=== PATIENT | female | born 1980 | race Caucasian/White ===

== ENCOUNTER 2018-03-26 13:30 | Inpatient (IN) | payer OTHER ==
[2018-03-26] MEDS ORDERED: ePHEDrine 50 MG/ML SDV IVPUSH PRN (14:14)
[2018-03-26] MEDS ORDERED: fentaNYL 100 MCG/2 ML SDV EPIDUR PRN (14:14)
[2018-03-26] MEDS ORDERED: Ondansetron 4 MG/2 ML SDV IVPUSH PRN (14:14)
[2018-03-26] MEDS ORDERED: Bupivacaine/fentaNYL/NS 100 ML Bag EPIDUR SCH (14:15)
[2018-03-26] MEDS ORDERED: Nalbuphine 20 MG/ML 1 ML Syringe IVPUSH PRN (14:52)
[2018-03-26] MEDS ORDERED: Sodium Chloride 0.9% 10 ML Syringe FLUSH PRN (14:52)
[2018-03-26] MEDS ORDERED: Lidocaine 1% 50 ML MDV INJECT ONE (14:52)
[2018-03-26] MEDS ORDERED: Oxytocin/Lactated Ringers 10 UNIT/1,000 ML BAG IV SCH (15:00)
[2018-03-26] MEDS ORDERED: Lactated Ringers 1,000 ML IV SCH (15:00)
--- NOTE | 2018-03-26 15:36 | PCM.PREANE ---
Preanesthetic Assessment - Anesthesia/Transfusion/Family Hx Anesthesia History: Prior Anesthesia Without Reaction Family History of Anesthesia Reaction: No Transfusion History: No Prior Transfusion(s) Intubation History: Unknown - Review of Systems General: No Symptoms Cardiovascular: Palpitations ( PVC's noted with with normal echocardiogram and cardiology consult with no findings noted.), Lightheadedness (with with positional changes) Gastrointestinal: No Symptoms (GERD), Constipation, Nausea Neurological: No Symptoms (History of motin sickness) Other: Reports: Anxiety - Physical Assessment NPO Status Date: 03/26/18 NPO Status Time: 15:30 Pulse: 69 O2 Sat by Pulse Oximetry: 100 Respiratory Rate: 18 Blood Pressure: 118/71 Temperature: 37.1 C Vital Signs: Last Vital Signs Temp 37.1 C 03/26/18 14:52 Pulse 69 03/26/18 14:52 Resp 18 03/26/18 14:52 BP 118/71 03/26/18 14:52 Pulse Ox 100 03/26/18 14:52 Height: 1.63 m Weight: 70.76 kg ASA Class: 2 Mental Status: Alert & Oriented x3 Airway Class: Mallampati = 2 Dentition: Reports: Normal Dentition, [place](s), Missing Tooth/Teeth, Caries Thyro-Mental Finger Breadths: 3 Mouth Opening Finger Breadths: 3 ROM/Head Extension: Full Lungs: Clear to Auscultation, Normal Respiratory Effort Cardiovascular: Regular Rate, Regular Rhythm, No Murmurs - Lab Values: Laboratory Last Values WBC 13.32 K/mm3 (3.98-10.04) H 03/26/18 15:10 RBC 3.57 M/mm3 (3.98-5.22) L 03/26/18 15:10 Hgb 10.6 gm/L (11.2-15.7) L 03/26/18 15:10 Hct 32.4 % (34.1-44.9) L 03/26/18 15:10 MCV 90.8 fl (79.4-94.8) 03/26/18 15:10 MCH 29.7 pg (25.6-32.2) 03/26/18 15:10 MCHC 32.7 g/dl (32.2-35.5) 03/26/18 15:10 RDW Std Deviation 41.1 fL (36.4-46.3) 03/26/18 15:10 Plt Count 205 K/mm3 (182-369) 03/26/18 15:10 MPV 9.8 fl (9.4-12.3) 03/26/18 15:10 Above labs reviewed and noted and within acceptable ranges for epidural if patient so desires. - Allergies Allergies/Adverse Reactions: Allergies Allergy/AdvReac Type Severity Reaction Status Date / Time No Known Allergies Allergy Verified 03/08/18 20:48 - Anesthesia Plan Pre-Op Medication Ordered: None - Acknowledgements Anesthesia Type Planned: Epidural Pt an Appropriate Candidate for the Planned Anesthesia: Yes Alternatives and Risks of Anesthesia Discussed w Pt/Guardian: Yes Pt/Guardian Understands and Agrees with Anesthesia Plan: Yes PreAnesthesia Questionnaire Cardiovascular History: Reports: Other (See Below) Other Cardiovascular History: history of PVC's with this . 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 - Past Surgical History Cardiovascular Surgical History: Reports: None Female Surgical History: Reports: Cystoscopy - SUBSTANCE USE Smoking Status *Q: Never Smoker Second Hand Smoke Exposure: No Recreational Drug Use History: No - HOME MEDS Home Medications: Home Meds Calcium Carbonate [Tums] 500 mg PO Q2HR PRN 03/08/18 [History] Pnv No.122/Iron/Folic Acid [ Multi Tablet] 1 each PO DAILY 03/08/18 [ History] - CURRENT (IN HOUSE) MEDS Current Meds: Current Medications Ephedrine Sulfate (Ephedrine Sulfate) 5 mg IVPUSH ASDIRECTED PRN PRN Reason: Hypotension Fentanyl (Sublimaze) 100 mcg EPIDUR Q3H PRN PRN Reason: Pain Fentanyl/Bupivacaine HCl (Fentanyl/Bupivacaine/Ns 2 Mcg-0.125% 100 Ml) 100 ml EPIDUR ASDIRECTED ROMARIO Lactated Ringer's (Ringers, Lactated) 1,000 mls @ 100 mls/hr IV ASDIRECTED ROMARIO Oxytocin/Lactated Ringer's (Pitocin In Lr 10 Units/1,000 Ml) 10 unit in 1,000 mls @ 500 mls/hr IV .CONTINUOUS ROMARIO; Protocol Nalbuphine HCl (Nubain) 10 mg IVPUSH Q2H PRN PRN Reason: pain Ondansetron HCl (Zofran) 4 mg IVPUSH ONETIME PRN PRN Reason: Nausea/Vomiting Sodium Chloride (Saline Flush) 10 ml FLUSH ASDIRECTED PRN PRN Reason: Keep Vein Open Discontinued Medications Lidocaine HCl (Xylocaine 1%) 50 ml INJECT ONETIME ONE Stop: 03/26/18 14:53
--- NOTE | 2018-03-26 21:21 | PCM.LDHP ---
L&D History of Present Illness - General Date of Service: 03/26/18 Admit Problem/Dx: Patient Status Order with Admit Dx/Problem 03/26/18 15:15 Patient Status [ADT] Routine Admission Diagnosis/Problem Admission Diagnosis/Problem Labor established Source of Information: Patient History Limitations: Reports: No Limitations - History of Present Illness Introduction:: 37 year old at 39w3 here with SROM. Pain Score: 10 - Related Data Allergies/Adverse Reactions: Allergies Allergy/AdvReac Type Severity Reaction Status Date / Time No Known Allergies Allergy Verified 03/08/18 20:48 Home Medications: Home Meds Calcium Carbonate [Tums] 500 mg PO Q2HR PRN 03/08/18 [History] Pnv No.122/Iron/Folic Acid [ Multi Tablet] 1 each PO DAILY 03/08/18 [ History] Past Medical History Cardiovascular History: Reports: Other (See Below) Other Cardiovascular History: history of PVC's with this . 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 - Past Surgical History Cardiovascular Surgical History: Reports: None Female Surgical History: Reports: Cystoscopy Social & Family History - Tobacco Use Smoking Status *Q: Never Smoker Second Hand Smoke Exposure: No - Recreational Drug Use Recreational Drug Use: No H&P Review of Systems - Review of Systems: Review Of Systems: See Below General: Reports: No Symptoms HEENT: Reports: No Symptoms Pulmonary: Reports: No Symptoms Cardiovascular: Reports: No Symptoms Gastrointestinal: Reports: No Symptoms Genitourinary: Reports: No Symptoms Musculoskeletal: Reports: No Symptoms Skin: Reports: No Symptoms Psychiatric: Reports: No Symptoms Neurological: Reports: No Symptoms Hematologic/Lymphatic: Reports: No Symptoms Immunologic: Reports: No Symptoms L&D Exam - Exam Exam: See Below - Vital Signs Vital Signs: Last Vital Signs Temp 37.1 C 03/26/18 15:40 Pulse 69 03/26/18 15:40 Resp 18 03/26/18 15:40 BP 118/71 03/26/18 15:40 Pulse Ox 100 03/26/18 15:40 Weight: 70.76 kg - OB Specific Contraction Intensity: Mild to Moderate Movement: Active Heart Tones: Present Presentation: Vertex - Barboza Score Barboza Score Cervix Position: Midposition Barboza Score Consistency: Medium Barboza Score Effacement: 51-70% Barboza Score Dilation: 3-4 cm Barboza Score Infant's Station: -2 Barboza Score Total: 7 - Exam General: Alert, Oriented HEENT: PERRLA, Conjunctiva Clear, EACs Clear, EOMI, Hearing Intact, Mucosa Moist & [place], Nares Patent, Normal Nasal Septum, Posterior Pharynx Clear, TMs Clear Neck: Supple, Trachea Midline Lungs: Clear to Auscultation, Normal Respiratory Effort Cardiovascular: Regular Rate, Regular Rhythm GI/Abdominal Exam: Normal Bowel Sounds, Soft, Non-Tender, No Organomegaly, No Distention, No Abnormal Bruit, No Mass, Pelvis Stable Genitourinary: Other (speculum exam with pooling, positive nitrazine) Back Exam: Normal Inspection, Full Range of Motion Extremities: Normal Inspection, Normal Range of Motion, Non-Tender, No Pedal Edema, Normal Capillary Refill Skin: Warm, Dry, Intact Neurological: Cranial Nerves Intact, Reflexes Equal Bilateral Psychiatric: Alert, Normal Affect, Normal Mood - Patient Data Lab Results Last 24 hrs: Laboratory Results - last 24 hr 03/26/18 Range/Units 15:10 WBC 13.32 H (3.98-10.04) K/mm3 RBC 3.57 L (3.98-5.22) M/mm3 Hgb 10.6 L (11.2-15.7) gm/L Hct 32.4 L (34.1-44.9) % MCV 90.8 (79.4-94.8) fl MCH 29.7 (25.6-32.2) pg MCHC 32.7 (32.2-35.5) g/dl RDW Std Deviation 41.1 (36.4-46.3) fL Plt Count 205 (182-369) K/mm3 MPV 9.8 (9.4-12.3) fl Result Diagrams: 03/26/18 15:10 Problem List Initiated/Reviewed/Updated: Yes Orders Last 24hrs: Active Orders 24 hr Category Date Time Status Patient Status Manage Transfer [TRANSFER] Routine ADT 03/26/18 21:12 Ordered Patient Status [ADT] Routine ADT 08/15/18 15:15 Active Activity as Tolerated [RC] PFP Care 03/26/18 14:52 Active Communication Order [RC] ASDIRECTED Care 03/26/18 14:52 Active Heart Tones [RC] ASDIRECTED Care 03/26/18 14:52 Active Non Stress Test [RC] PER UNIT ROUTINE Care 03/26/18 14:52 Active Notify Provider [RC] ASDIRECTED Care 03/26/18 14:14 Active Notify Provider [RC] PFP Care 03/26/18 14:52 Active Notify Provider [RC] PRN Care 03/26/18 14:52 Active Oxygen Therapy [RC] ASDIRECTED Care 03/26/18 14:14 Active Peripheral IV Care [RC] . DIRECTED Care 03/26/18 14:52 Active Pulse Oximetry [RC] ASDIRECTED Care 03/26/18 14:14 Active Urinary Catheter Assessment [RC] ASDIRECTED Care 03/26/18 14:52 Active Vital Signs [RC] PER UNIT ROUTINE Care 03/26/18 14:52 Active Regular Diet [DIET] Diet 03/26/18 Dinner Active RAPID PLASMA REAGIN,RPR [CHEM] Stat Lab 03/26/18 15:10 Received Bupivacaine/fentaNYL/NS [fentaNYL/Bupivacaine/NS 2 MCG- Med 03/26/18 14:15 Active 0.125% 100 ML] 100 ml EPIDUR ASDIRECTED Lactated Ringers [Ringers, Lactated] 1,000 ml Med 03/26/18 15:00 Active IV ASDIRECTED Nalbuphine [Nubain] Med 03/26/18 14:52 Active 10 mg IVPUSH Q2H PRN Ondansetron [Zofran] Med 03/26/18 14:14 Active 4 mg IVPUSH ONETIME PRN Oxytocin [Pitocin] 10 unit Med 03/26/18 15:45 Active Lactated Ringers [Ringers, Lactated] 1,000 ml IV TITRATE Oxytocin/Lactated Ringers [Pitocin in LR 10 Units/1,000 Med 03/26/18 15:00 Active ML] 10 unit in 1,000 ml IV .CONTINUOUS Sodium Chloride 0.9% [Saline Flush] Med 03/26/18 14:52 Active 10 ml FLUSH ASDIRECTED PRN ePHEDrine [ePHEDrine Sulfate] Med 03/26/18 14:14 Active 5 mg IVPUSH ASDIRECTED PRN fentaNYL [Sublimaze] Med 03/26/18 14:14 Active 100 mcg EPIDUR Q3H PRN Electronic Heart Tones Ext w TOCO [WOMSER] Oth 03/26/18 14:52 Ordered Routine Electronic Heart Tones Internal [WOMSER] Per Unit Oth 03/26/18 14:52 Ordered Routine Peripheral IV Insertion Adult [OM.PC] Routine Oth 03/26/18 14:52 Ordered Resuscitation Status Routine Resus Stat 03/26/18 14:52 Ordered Medication Orders Ephedrine Sulfate (Ephedrine Sulfate) 5 mg IVPUSH ASDIRECTED PRN PRN Reason: Hypotension Fentanyl (Sublimaze) 100 mcg EPIDUR Q3H PRN PRN Reason: Pain Last Admin: 03/26/18 18:55 Dose: 100 mcg Fentanyl/Bupivacaine HCl (Fentanyl/Bupivacaine/Ns 2 Mcg-0.125% 100 Ml) 100 ml EPIDUR ASDIRECTED ROMARIO Last Admin: 03/26/18 19:01 Dose: 100 ml Lactated Ringer's (Ringers, Lactated) 1,000 mls @ 100 mls/hr IV ASDIRECTED ROMARIO Last Admin: 03/26/18 15:29 Dose: 100 mls/hr Oxytocin/Lactated Ringer's (Pitocin In Lr 10 Units/1,000 Ml) 10 unit in 1,000 mls @ 500 mls/hr IV .CONTINUOUS ROMARIO; Protocol Oxytocin 10 unit/ Lactated (Ringer's) 1,001 mls @ 12.01 mls/hr IV TITRATE ROMARIO; Protocol Last Titration: 03/26/18 17:50 Dose: 5 munits/min, 30.03 mls/hr Titration: 03/26/18 16:45 Dose: 4 munits/min, 24.02 mls/hr Titration: 03/26/18 16:16 Dose: 3 munits/min, 18.01 mls/hr Admin: 03/26/18 15:30 Dose: 2 munits/min, 12.01 mls/hr Nalbuphine HCl (Nubain) 10 mg IVPUSH Q2H PRN PRN Reason: pain Ondansetron HCl (Zofran) 4 mg IVPUSH ONETIME PRN PRN Reason: Nausea/Vomiting Sodium Chloride (Saline Flush) 10 ml FLUSH ASDIRECTED PRN PRN Reason: Keep Vein Open Assessment/Plan Comment:: 37 year old with SROM at 39w3. Doing well Pitocin augmentation. Anticipate
--- NOTE | 2018-03-26 21:27 | PCM.SN ---
- Free Text/Narrative Note: Stage I - pitocin augmentation after SROM at work. Progressed to complete with epidural anesthesia and overall reassuring FHT. Stage II - VAVD of viable male, weight 3170, APGARS 9/9. Verbal consent obtained. Vacuum placed at +4/5 station. Head delivered in controlled manner over two contractions and 5 pushes with vacuum assistance. Body and shoulders followed without difficulty. Positive cry. Baby to maternal abdomen. Cord clamped and cut. Stage III - of intact placenta. 3vc. 2nd degree midline laceration repaired with 3-0 monocryl.
[2018-03-26] MEDS ORDERED: Hydrocortisone Acetate 25 MG Supp RECTAL PRN (21:47)
[2018-03-26] MEDS ORDERED: Witch Hazel Medicated Pads 100/Jar TOP PRN (21:47)
[2018-03-26] MEDS ORDERED: Benzocaine/Menthol 20%-0.5% Spray 56 GM Canister TOP PRN (21:47)
[2018-03-26] MEDS ORDERED: Docusate Sodium 100 MG Cap PO PRN (21:47)
[2018-03-26] MEDS ORDERED: Lanolin 100% Cream 7 GM Tube TOP PRN (21:47)
[2018-03-26] MEDS ORDERED: Bupivacaine 0.25% 10 ML SDV ONE (22:00)
[2018-03-27] MEDS: Ibuprofen 600 MG Tab PO PRN ×2 (06:21→12:25)
--- NOTE | 2018-03-27 07:36 | PCM48HPAN ---
Post Anesthesia Note - EVALUATION WITHIN 48HRS OF ANESTHETIC Vital Signs in Normal Range: Yes Patient Participated in Evaluation: Yes Respiratory Function Stable: Yes Airway Patent: Yes Cardiovascular Function Stable: Yes Hydration Status Stable: Yes Pain Control Satisfactory: Yes Nausea and Vomiting Control Satisfactory: Yes Mental Status Recovered: Yes Pulse Rate: 67 Resp Rate: 16 Temperature: 37.1 C Blood Pressure: 114/64 - COMMENTS/OBSERVATIONS Free Text/Narrative:: no anesthesia complications noted
[2018-03-28] MEDS: Ibuprofen 600 MG Tab PO PRN (03:50)
--- NOTE | 2018-03-28 10:22 | PCM.PNPP ---
- General Info Date of Service: 03/27/18 Subjective Update: doing well. Tired. No complaints - Review of Systems General: Reports: No Symptoms HEENT: Reports: No Symptoms Pulmonary: Reports: No Symptoms Cardiovascular: Reports: No Symptoms Gastrointestinal: Reports: No Symptoms Genitourinary: Reports: No Symptoms Musculoskeletal: Reports: No Symptoms Skin: Reports: No Symptoms Neurological: Reports: No Symptoms Psychiatric: Reports: No Symptoms - General Info Date of Service: 03/27/18 - Patient Data Vital Signs - Most Recent: Last Vital Signs Temp 37.2 C 03/28/18 03:50 Pulse 61 03/28/18 03:49 Resp 14 03/28/18 03:49 BP 103/63 03/28/18 03:49 Pulse Ox 97 03/28/18 03:49 Weight - Most Recent: 70.76 kg I&O - Last 24 Hours: Intake & Output 03/27/18 03/28/18 03/28/18 22:59 06:59 14:59 Intake Total 320 Balance 320 Med Orders - Current: Current Medications Benzocaine/Menthol (Dermoplast Pain Relief [place]) 0 gm TOP ASDIRECTED PRN PRN Reason: Perineal Comfort Measure Last Admin: 03/26/18 23:39 Dose: 1 applicful Docusate Sodium (Colace) 100 mg PO BID PRN PRN Reason: Constipation Emollient Ointment (Lansinoh Hpa) 0 gm TOP ASDIRECTED PRN PRN Reason: Sore Nipples Hydrocortisone Acetate (Anucort-Hc) 25 mg RECTAL BID PRN PRN Reason: Hemorrhoid pain Ibuprofen (Motrin) 600 mg PO Q6H PRN PRN Reason: Mild pain or fever Last Admin: 03/28/18 03:50 Dose: 600 mg Witch Eli (Tucks) 1 pad TOP ASDIRECTED PRN PRN Reason: Hemorrhoid pain Last Admin: 03/26/18 23:39 Dose: 1 applicful Discontinued Medications Bupivacaine HCl (Sensorcaine-Mpf 0.25%) 10 ml .ROUTE .STK-MED ONE Stop: 03/26/18 22:01 Ephedrine Sulfate (Ephedrine Sulfate) 5 mg IVPUSH ASDIRECTED PRN PRN Reason: Hypotension Fentanyl (Sublimaze) 100 mcg EPIDUR Q3H PRN PRN Reason: Pain Last Admin: 03/26/18 18:55 Dose: 100 mcg Fentanyl/Bupivacaine HCl (Fentanyl/Bupivacaine/Ns 2 Mcg-0.125% 100 Ml) 100 ml EPIDUR ASDIRECTED ROMARIO Last Admin: 03/26/18 19:01 Dose: 100 ml Lactated Ringer's (Ringers, Lactated) 1,000 mls @ 100 mls/hr IV ASDIRECTED ROMARIO Last Admin: 03/26/18 15:29 Dose: 100 mls/hr Oxytocin/Lactated Ringer's (Pitocin In Lr 10 Units/1,000 Ml) 10 unit in 1,000 mls @ 500 mls/hr IV .CONTINUOUS ROMARIO; Protocol Oxytocin 10 unit/ Lactated (Ringer's) 1,001 mls @ 12.01 mls/hr IV TITRATE ROMARIO; Protocol Last Titration: 03/26/18 17:50 Dose: 5 munits/min, 30.03 mls/hr Lidocaine HCl (Xylocaine 1%) 50 ml INJECT ONETIME ONE Stop: 03/26/18 14:53 Last Admin: 03/27/18 03:41 Dose: Not Given Nalbuphine HCl (Nubain) 10 mg IVPUSH Q2H PRN PRN Reason: pain Ondansetron HCl (Zofran) 4 mg IVPUSH ONETIME PRN PRN Reason: Nausea/Vomiting Sodium Chloride (Saline Flush) 10 ml FLUSH ASDIRECTED PRN PRN Reason: Keep Vein Open - Infant Interaction Infant Disposition, : Perry in Room with Family Support Person: - Recovery Exam Fundal Tone: Firm Fundal Level: At Umbilicus Fundal Placement: Midline Lochia Amount: Scant Lochia Color: Rubra/Red Episiotomy/Laceration: Approximated Bladder Status: Voiding Urinary Elimination: Voided - Exam General: Alert, Oriented HEENT: Pupils Equal Neck: Supple Lungs: Clear to Auscultation, Normal Respiratory Effort Cardiovascular: Regular Rate, Regular Rhythm GI/Abdominal Exam: Normal Bowel Sounds, Soft, Non-Tender, No Organomegaly, No Distention, No Abnormal Bruit, No Mass, Pelvis Stable Extremities: Normal Inspection, Normal Range of Motion, Non-Tender, No Pedal Edema, Normal Capillary Refill Skin: Warm, Dry, Intact Wound/Incisions: Healing Well Neurological: No New Focal Deficit Psy/Mental Status: Alert, Normal Affect, Normal Mood - Problem List Review Problem List Initiated/Reviewed/Updated: Yes - My Orders Last 24 Hours: My Active Orders 03/27/18 21:47 Heat Therapy [OM.PC] PRN 03/28/18 08:28 Ready for Discharge [RC] PER UNIT ROUTINE - Assessment Assessment:: PPD1 Doing well Probable discharge tomorrow. - Plan Plan:: 37 year old with SROM at 39w3. Doing well Pitocin augmentation. Anticipate
== END 2018-03-28 10:45 | disposition home or self-care (01) | DRG 775 ==
LOC: JD.OBCHECK 13:30 → JD.OB 13:33 → JD.OBCHECK 15:15 → OBSVTOIN 20:50 → JD.OB 20:51
PROVIDERS: ADMIT Obstetrics & Gynecology; ATTEND Obstetrics & Gynecology
PROC: 10D07Z6 Extraction of Products of Conception, Vacuum, Via Natural or Artificial Opening (ICD-10-PCS; principal; 2018-03-26)
PROC: 0KQM0ZZ Repair Perineum Muscle, Open Approach (ICD-10-PCS; principal; 2018-03-26)
PROC: 3E0R3BZ Introduction of Anesthetic Agent into Spinal Canal, Percutaneous Approach (ICD-10-PCS; 2018-03-26)
PROC: 00HU33Z Insertion of Infusion Device into Spinal Canal, Percutaneous Approach (ICD-10-PCS; 2018-03-26)
DX: O99.344 Other mental disorders complicating childbirth (principal); F32.9 Major depressive disorder, single episode, unspecified; F41.9 Anxiety disorder, unspecified; O70.1 Second degree perineal laceration during delivery; Z3A.39 39 weeks gestation of pregnancy; Z37.0 Single live birth
CPT/HCPCS: 36415; 51702; 59025; 59300; 59409; 85027; 86592; A9270-GY; J2590; J3010; J3490; J7120